=== PATIENT | female | born 1995 | race Caucasian/White ===

== ENCOUNTER 2023-05-16 11:29 | Outpatient (CLI) | payer OTHER | END 2023-05-16 13:10 | disposition home or self-care (01) | LOC: NST 11:29 | PROVIDERS: ATTEND Obstetrics & Gynecology | DX: Z34.83 Encounter for supervision of other normal pregnancy, third trimester (principal) ==

== ENCOUNTER 2023-05-23 12:25 | Outpatient (CLI) | payer OTHER | END 2023-05-23 13:51 | disposition home or self-care (01) | LOC: NST 12:25 | PROVIDERS: ATTEND Obstetrics & Gynecology Gynecology | DX: Z34.83 Encounter for supervision of other normal pregnancy, third trimester (principal) ==